=== PATIENT | male | born 1955 | race Caucasian/White ===

== ENCOUNTER 2024-01-10 15:30 | Emergency (ER) | payer MEDICARE, OTHER, SELFPAY ==
[2024-01-10 15:37] VITALS: BP 157/78
[2024-01-10 15:58] LABS: % Basophils 0.7 % (0-2); % Immature Granulocytes 0.9 % (0-0.5); % Monocytes 7.9 % (1.7-9.3); % Neutrophils 73.5 % (42.2-75.2); Absolute Basophils 0.1 10^3/uL (0-0.2); Absolute Eosinophils 0.1 10^3/uL (0-0.7); Absolute Immature Granulocytes 0.1 10^3/uL (0-0.05); Absolute Lymphocytes 2.2 10^3/uL (1.2-3.4); Absolute Monocytes 1.1 10^3/uL (0.1-0.6); Absolute Neutrophils 10.1 10^3/uL (1.4-6.5); Hematocrit 42.4 % (39.0-52.0); Hemoglobin 14.4 g/dL (13.0-18.0); Mean Corpuscular Hgb 32.2 pg (27.0-31.0); Mean Corpuscular Volume 94.9 fL (80.0-94.0); Mean Platelet Volume 9.8 fL (7.4-10.4); Nucleated Red Blood Cells % 0 % (-); Platelet Count 241 10^3/uL (130-400); Red Blood Cell Count 4.47 10^6/uL (4.70-6.10); Red Cell Dist. Width 12.6 % (11.5-14.5); White Blood Cell Count 13.7 10^3/uL (4.8-10.8)
[2024-01-10 16:14] LABS: ALT (SGPT) 30 U/L (0-50); AST (SGOT) 29 U/L (17-59); Alkaline Phosphatase 96 U/L (38-126); Blood Urea Nitrogen 18 mg/dl (9-20); Calcium 9.5 mg/dl (8.4-10.2); Carbon Dioxide 29 mmol/L (22-30); Chloride 100 mmol/L (98-107); Glucose 101 mg/dl (70-99); Potassium 4.3 mmol/L (3.5-5.1); Sodium 137 mmol/L (135-145); Total Bilirubin 0.8 mg/dl (0.2-1.3); Total Protein 6.7 g/dl (6.3-8.2); eGFR > 60.00
[2024-01-10 17:39] LABS: Urine Albumin 2+ (Neg - Trace); Urine Bilirubin Negative (Negative); Urine Character Very Cloudy (Clear); Urine Color Brown; Urine Glucose Negative (Negative); Urine Ketone Trace (Negative); Urine Leukocyte 2+ (Negative); Urine Nitrite Positive (Negative); Urine Occult Blood 4+ (Negative); Urine Specific Gravity 1.015 (<1.030); Urine Urobilinogen Negative (Neg - 1+)
[2024-01-10 17:46] LABS: Urine Red Blood Cell >100 /HPF (0-2)
--- NOTE | 2024-01-10 18:36 | ED.GENMED ---
Addendum entered and electronically signed by Stevo James PA-C 01/13/24 13:54:
Patient's urine culture grew greater than 100,000 CFU of Klebsiella. Susceptible to second and third-generation cephalosporins. Prescription for cefuroxime sent to patient's pharmacy. Patient has appointment scheduled with urology for the end of
the month. Unable to see his family provider in a timely matter either. Patient still notes he is having hematuria and some frequency. Will send a prescription for cefuroxime to patient's pharmacy. Aware of return precautions.
Original Note:
History of Present Illness
General
Chief Complaint: Urinary Symptoms
Source: patient
Exam Limitations: none
Time Seen by Provider: 01/10/24 18:35
Nursing documentation reviewed up to this point in time: agreed with
Travel History
Have you had any contact with someone who has COVID-19?: No
Do you have any symptoms of coronavirus? Fever > 100 degrees, chills, cough, shortness of breath, sore throat, loss of taste or smell, muscle aches, or headache?: No
History of Present Illness
History of Present Illness:
68-year-old male with history of A-fib on Xarelto, CAD, HTN, cardiac stents presents stating at 12 noon today urinated bloody urine with a few tiny clots, he is urinated a few times since, still bloody, denies pain, denies fever or chills, denies
abdominal pain.
Past History
Past History
ED Past Medical History: Arrthythmia (PAF), Asthma, CAD and HTN
ED Past Surgical History: Cardiac (Stents, cardiac ablation) and Orthopedic
Social History
Tobacco: Non-smoker
Alcohol: None
Personal:
Living: with family
Family History
Family History: Negative Diabetes, Hypertension or CAD
Review of Systems
Review of Systems
Allergies reviewed?: Yes
All Other Systems: ROS reviewed and negative except as documented in HPI and ROS
Constitutional: Denies fever, fatigue or chills
ABD/GI: Denies abdominal pain, nausea, vomiting or anorexia
: Reports bleeding; Denies dysuria, frequency, flank pain, difficulty voiding or urgency
Musculoskeletal: Reports no symptoms
Skin: Reports no symptoms
Neurological: Reports no symptoms
Phy Exam
Physical Exam
Physical Exam:
GENERAL: No acute distress. A&Ox3.
CONSTITUTIONAL: Afebrile.
EYES: Clear, conjunctivae normal
ENMT: moist mucus membranes, Pharynx nl
RESPIRATORY: Regular respirations, nonlabored, lungs clear.
CARDIOVASCULAR: Regular rate and rhythm, no murmurs, no rubs.
GI: Soft, nontender, normal BS
: Patient just urinated into the toilet, the water is light pink, no clots
MUSCULOSKELETAL: Moves with ease. Well perfused.
SKIN: Warm, dry, pink
PSYCH: Normal mood and affect. Well kept, interactive and appropriate
NEUROLOGIC: Awake, alert and oriented. No focal neurological deficits
Course
Orders/Labs/Results
Orders:
Orders
01/10/24 15:48
CMP [Comprehensive Metabolic Panel] Urgent
Complete Blood Count/With Diff Urgent
01/10/24 17:09
Urinalysis Reflex To Culture Urgent
Date Specimen was Collected: 01/10/24
Time Specimen was Collected: 15:41
Urine Microscopic Reflex Cult Urgent
Urine Culture Urgent
MISAEL Source: U
Specimen Description:
Date Specimen was Collected: 01/10/24
Time Specimen was Collected: 15:41
01/10/24 19:01
Bladder Scan- Treatment ONCE
01/10/24 19:35
Fosfomycin [Monurol] 3 gm PO ONCE ONE
Abnormal Lab Results
01/10/24 01/10/24
15:48 17:09
WBC 13.7 H 10^3/uL
(4.8-10.8)
RBC 4.47 L 10^6/uL
(4.70-6.10)
MCV 94.9 H fL
(80.0-94.0)
MCH 32.2 H pg
(27.0-31.0)
Abs Immat Gran (auto) 0.1 H 10^3/uL
(0-0.05)
Absolute Neuts (auto) 10.1 H 10^3/uL
(1.4-6.5)
Absolute Monos (auto) 1.1 H 10^3/uL
(0.1-0.6)
Immature Gran % 0.9 H %
(0-0.5)
Lymphocytes % 16.0 L %
(20.5-51.1)
Glucose 101 H mg/dl
(70-99)
Urine Ketones Trace A
(Negative)
Ur Occult Blood Reflex 4+ A
(Negative)
Urine Nitrite (Reflex) Positive A
(Negative)
Leukocyte Esterase Rfl 2+ A
(Negative)
Urine RBC >100 A /HPF
(0-2)
Urine Albumin (Reflex) 2+ A
(Neg - Trace)
01/10/24 15:48
01/10/24 15:48
Vital Signs
Initial and Last Documented VS:
Initial Vital Signs
Temp Pulse Resp BP Pulse Ox
98.2 F 77 18 157/78 95
01/10/24 15:37 01/10/24 15:37 01/10/24 15:37 01/10/24 15:37 01/10/24 15:37
Last Documented Vital Signs
Temp Pulse Resp BP Pulse Ox
98.2 F 82 16 132/81 98
01/10/24 15:37 01/10/24 20:30 01/10/24 20:30 01/10/24 20:30 01/10/24 20:30
Health Actuary consulted with Physician
Health Actuary consulted with physician?: Yes
Name of Physician Consulted: Jerrell
MDM/Problems Addressed
Differential Diagnosis Includes:
UTI, supratherapeutic Xarelto
MDM/Problems Addressed:
68-year-old male with history of A-fib on Xarelto, CAD, HTN, cardiac stents presents stating at 12 noon today urinated bloody urine with a few tiny clots, he is urinated a few times since, still bloody, denies pain, denies fever or chills, denies
abdominal pain.
01/10/2024 1920 PM
CBC: WBC 13.7, no other abnormality
CMP: Normal
UA: 4+ occult blood, greater than 100 R positive nitrites BCs,, 2+ leukocytes , Unable to count WBC due to field obscured by RBCs.
Postvoid bladder scan: 40 ml
Plan: Treat UTI with fosfomycin 3 g, Informed Urology Dr. Pisano pt will be calling in a.m. for appointment
holding Xarelto, Dr. Alvarado Cardiology notified and will f/u for Xarelto
Dr pope in to evaluate pt and agrees with assessment and plan.
68-year-old male with hematuria, positive leukocytes, positive nitrates in urine, afebrile, no pain, not ill-appearing, do not suspect upper urinary tract involvement/infection/pyelonephritis
Urine culture pending
*Critical Care Note
Total Time (30-74mins, 75-104mins- exclusive of procedures): Not Applicable
ED Attending Note
-
Portions of this chart may have been created with voice recognition software.� Occasional wrong word or��sound alike� substitutions may have occurred due to the inherent limitations of voice recognition software.
Discharge Plan
Departure
Patient Disposition: Home (Routine Discharge)
Date of Disposition: 01/10/24
Time of Disposition: 19:49
Patient with high blood pressure during this ER visit?: No
Condition: Good
Discharge Problem:
Hematuria, Acute UTI
Instructions: Urinary Tract Infection, Adult (DC), Blood in the Urine (Hematuria), Adult (DC)
Prescriptions:
No Action
aspirin 81 MG tablet,delayed release (DR/EC)
81 mg PO DAILY 0RF
ezetimibe 10 MG tablet
10 mg PO QPM
cholecalciferol (vitamin D3) 2,000 UNITS tablet
2,000 unit PO DAILY
Xarelto 20 MG tablet
20 mg PO QPM Qty: 30 6RF
atorvastatin 10 MG tablet
20 mg PO BID
doxazosin 1 mg Tablet
1 mg PO QPM
metoprolol succinate 50 mg Tablet Extended Release 24 Hr
50 mg PO 1700
metoprolol succinate 100 mg Tablet Extended Release 24 Hr
100 mg PO DAILY
lisinopril 2.5 mg Tablet
2.5 mg PO QPM
mecobalamin (vitamin B12) [B12 Active] 1,000 mcg Tablet,Chewable
1,000 mcg PO DAILY
tizanidine 4 mg Tablet
4 mg PO DAILYPRN PRN (Reason: muscle spasms)
oxycodone [OxyContin] 15 mg Tablet,Oral Only,Ext.Rel.12 Hr
15 mg PO Q12H
meloxicam 7.5 mg Tablet
7.5 mg PO DAILY
pantoprazole [Protonix] 40 mg tablet,delayed release (DR/EC)
40 mg PO DAILY Qty: 30 0RF
Referrals:
Naty Trotter DO [Family Provider] -
Bakari Pisano MD [Active] - Next open appointment
Leland Garner MD [Active] - Tomorrow
Activity Restrictions/Additional Instructions:
As we discussed, call the urology Dr. Pisano's office tomorrow and make an appointment for follow-up.
Someone from Dr. Garner's office should contact you tomorrow regarding restarting your Xarelto. If you do not hear from them by noon, give the office a call
Return here immediately for fever, chills, vomiting, inability to empty your bladder or feeling sicker in any way
Interventions
Interventions:
*Risk Screen - Suicide Last Done: 01/10/24 18:58
*General Assessment Last Done: 01/10/24 18:58
*Neglect/Abuse Screening Last Done: 01/10/24 18:58
ED- Fall Risk Assessment Last Done: 01/10/24 18:58
*ED COVID-19 Vaccine History Last Done: 01/10/24 18:58
*Nursing Disposition Last Done: 01/10/24 20:30
ED-Male Genitourinary Assessment Last Done: 01/10/24 18:58
Discharge Date and Time
Discharge Date/Time: 01/10/24 20:30
--- NOTE | 2024-01-10 19:03 | EDRN ---
back pain from a fusion.
[2024-01-10 19:05] VITALS: BMI 30.1
[2024-01-10] MEDS: MONUROL 3 GM PO (19:55)
[2024-01-10 20:30] VITALS: BP 132/81
[2024-01-10 21:12] VITALS: BP 132/81
== END 2024-01-10 20:30 | disposition home or self-care (01) ==
LOC: EMR 15:30
PROVIDERS: EMERGENCY PHYSICIAN Emergency Medicine; FAMILY PHYSICIAN Student in an Organized Health Care Education/Training Program
DX: N39.0 Urinary tract infection, site not specified (principal); R31.9 Hematuria, unspecified; I48.0 Paroxysmal atrial fibrillation; I25.10 Atherosclerotic heart disease of native coronary artery without angina pectoris; I10 Essential (primary) hypertension; Z95.5 Presence of coronary angioplasty implant and graft
CPT/HCPCS: 99283; 80053; 81003; 81015; 85025; 87077; 87086; 87186

== ENCOUNTER → 2024-01-21 07:42 | Outpatient (REF) | payer MEDICARE, OTHER, SELFPAY | LOC: HWRAD 07:42 | PROVIDERS: ATTENDING PHYSICIAN Specialist; FAMILY PHYSICIAN Student in an Organized Health Care Education/Training Program | DX: R31.0 Gross hematuria (principal); N39.0 Urinary tract infection, site not specified | CPT/HCPCS: 76770 ==

== ENCOUNTER 2024-05-12 09:58 | Inpatient (IN) | payer MEDICARE, OTHER, SELFPAY ==
[2024-05-12 10:17] VITALS: BP 134/69
--- NOTE | 2024-05-12 10:24 | W.PN.CARDCBS ---
Addendum entered and electronically signed by Leland Garner MD 05/12/24 13:31:
68-year-old man with CAD/PCI, history of atrial tachycardia status post ablation and PAF November 2023 with recurrent atrial arrhythmia, admitted now for sotalol loading
PMH/PSH/FH/SH: Reviewed
Allergies: None
Outpatient meds reviewed, cardiac meds doxazosin 1 mg at bedtime, atorvastatin 20 mg a day, lisinopril 2.5 mg daily ezetimibe 10 mg daily, metoprolol ER 50 mg in the afternoon and 100 mg in the morning and Xarelto
ROS: Negative except as above
134/69, pulse 57, respiratory 20, head neck exam unremarkable lungs clear, regular rate and rhythm with soft systolic murmur, JVD carotids okay, abdomen benign extremities without clubbing cyanosis or edema distal pulses intact
EKG: Sinus bradycardia, PVCs, incomplete right bundle branch block, QTc 379
Hemoglobin 12.7, platelets 164, BUN and creatinine 18 and 1 with potassium of 5
Assessment:
Direct admission for sotalol loading
Frequent paroxysmal atrial tachycardia by monitor 01/2024
Paroxysmal atrial fibrillation
s/p PVI 12/01/23
PVCs
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
HTN
HLD
DDD/OA
Asthma
ECHO 11/18/2023: EF 63%, mild concentric LVH, trace MR
Plan:
Sotalol loading
Stop metoprolol for now
Original Note:
Today's Communication / Plan
-
awaiting labs and EKG
initiate sotalol
follow QTc
Impression / Plan
-
Please refer to office note dated 04/27/24
Primary Sonographer: Dr. SENTHIL Garner
Assessment:
Direct admission for sotalol loading
Frequent paroxysmal atrial tachycardia by monitor 01/2024
Paroxysmal atrial fibrillation
s/p PVI 12/01/23
PVCs
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
HTN
HLD
DDD/OA
Asthma
ECHO 11/18/2023: EF 63%, mild concentric LVH, trace MR
Plan:
-Patient presents for sotalol loading. He has paroxysmal atrial fibrillation and underwent PVI 11/2023. He had been having episodes of angina with significant physical exertion in the setting of known FACULTY MEMBER of 2nd diag. He underwent monitoring
01/2024 which showed 4000 episodes of atrial tachycardia.
-awaiting labs
-will initiate sotalol, dose pending bloodwork
-follow QTc
-currently in SR on tele
-continue xarelto, no missed doses
-he is taking toprol 100mg QAM and 50mg QPM. will decrease dose with addition of sotalol as HR currently in 50s
-he c/o leg cramping at last office visit. He was told to stop Zetia and statin after completing CVE. He states he has not yet had this blood work. Will complete CVE in AM. Cramping does not appear to be statin related.
-d/w nursing
Progress Note - Sonographer
Subjective
Date of Service: May 12, 2024
no complaints.
Physical Exam
Physical Exam
GEN: No distress, awake, alert, oriented x3
HEENT: supple, anicteric, mmm, eomi
LUNGS: CTA B/L, no wheezes/rales
CV: Reg, S1/S2, no murmur
ABD: soft, BS+, NT/ND
EXT: No cyanosis, clubbing, edema
NEURO: Gross non-focal
SKIN: Warm, pink, dry. No rash
[2024-05-12 11:00] VITALS: BMI 30.3
[2024-05-12 11:10] LABS: % Basophils 0.6 % (0-2); % Eosinophils 1.6 % (0-6); % Immature Granulocytes 0.5 % (0-0.5); % Lymphocytes 26.4 % (20.5-51.1); % Monocytes 8.8 % (1.7-9.3); % Neutrophils 62.1 % (42.2-75.2); Absolute Basophils 0.1 10^3/uL (0-0.2); Absolute Eosinophils 0.1 10^3/uL (0-0.7); Absolute Lymphocytes 2.3 10^3/uL (1.2-3.4); Absolute Monocytes 0.8 10^3/uL (0.1-0.6); Absolute Neutrophils 5.4 10^3/uL (1.4-6.5); Hematocrit 39.4 % (39.0-52.0); Hemoglobin 12.7 g/dL (13.0-18.0); Mean Corp Hgb Conc. 32.2 g/dL (33.0-37.0); Mean Corpuscular Hgb 32.7 pg (27.0-31.0); Mean Corpuscular Volume 101.5 fL (80.0-94.0); Mean Platelet Volume 10.8 fL (7.4-10.4); Nucleated Red Blood Cells % 0 % (-); Platelet Count 164 10^3/uL (130-400); Red Blood Cell Count 3.88 10^6/uL (4.70-6.10); Red Cell Dist. Width 13.6 % (11.5-14.5); White Blood Cell Count 8.7 10^3/uL (4.8-10.8)
[2024-05-12 11:27] VITALS: BP 138/69
[2024-05-12 12:25] LABS: ALT (SGPT) 29 U/L (0-50); AST (SGOT) 28 U/L (17-59); Alkaline Phosphatase 81 U/L (38-126); Blood Urea Nitrogen 18 mg/dl (9-20); Calcium 9.1 mg/dl (8.4-10.2); Carbon Dioxide 29 mmol/L (22-30); Chloride 103 mmol/L (98-107); Estimated Creatinine Clearance 67 ml/min; Glucose 89 mg/dl (70-99); Magnesium 1.9 mg/dl (1.6-2.3); Sodium 137 mmol/L (135-145); Total Bilirubin 0.9 mg/dl (0.2-1.3); Total Protein 6.1 g/dl (6.3-8.2); eGFR > 60.00
--- NOTE | 2024-05-12 12:40 | CM ---
CM following for DC planning needs.
Met w/ patient + spouse at bedside to complete initial assessment.
Pt. informs that he resides in a private home w spouse. He is functionally indep. at baseline with ADLs, mobility without the use of any assisted device.
Pt. has Rx plan and goes to [facility] on [address]
Anticipated DC plan is for home, no needs.
CM will cont. to follow for any needs that may arise.
[2024-05-12] MEDS: BETAPACE 120 MG PO (13:02)
[2024-05-12 15:26] VITALS: BP 141/77
[2024-05-12] MEDS: OXYCONTIN (CONTROLLED RELEASE) 15 MG PO (15:30)
[2024-05-12 15:45] VITALS: BMI 30.3
[2024-05-12 18:32] VITALS: BP 125/81
[2024-05-12] MEDS: XARELTO 20 MG PO (18:33)
[2024-05-12] MEDS: ZETIA 10 MG PO (18:33)
[2024-05-12] MEDS: LIPITOR 20 MG PO (18:33)
[2024-05-12] MEDS: ZESTRIL 2.5 MG PO (18:33)
[2024-05-12 19:13] VITALS: BP 130/70
[2024-05-12 21:59] VITALS: BP 133/73
[2024-05-12] MEDS: CARDURA 1 MG PO (23:22)
[2024-05-12] MEDS: ZANAFLEX 4 MG PO (23:25)
[2024-05-13] MEDS: BETAPACE 120 MG PO ×3 (00:55→22:04)
--- NOTE | 2024-05-13 01:38 | PTCARENOTE ---
Patient in chair until about 0100. Tikosyn #2 dose given, EKG ordered for 0300. SB HR in the 40-50's, lights dimmed, now in bed, call strange in reach
[2024-05-13 02:59] VITALS: BP 120/66
[2024-05-13] MEDS: OXYCONTIN (CONTROLLED RELEASE) 15 MG PO ×2 (03:06→15:12)
[2024-05-13 03:23] LABS: Hematocrit 39.2 % (39.0-52.0); Hemoglobin 13.7 g/dL (13.0-18.0); Mean Corp Hgb Conc. 34.9 g/dL (33.0-37.0); Mean Corpuscular Hgb 33.4 pg (27.0-31.0); Mean Corpuscular Volume 95.6 fL (80.0-94.0); Mean Platelet Volume 10.6 fL (7.4-10.4); Platelet Count 182 10^3/uL (130-400); Red Cell Dist. Width 13.6 % (11.5-14.5); White Blood Cell Count 10.2 10^3/uL (4.8-10.8)
[2024-05-13 03:47] LABS: Blood Urea Nitrogen 18 mg/dl (9-20); Calcium 9.7 mg/dl (8.4-10.2); Carbon Dioxide 27 mmol/L (22-30); Chloride 106 mmol/L (98-107); Estimated Creatinine Clearance 75 ml/min; Glucose 79 mg/dl (70-99); HDL Cholesterol 54 mg/dl; LDL Cholesterol, Calculated 61 mg/dl; Potassium 4.6 mmol/L (3.5-5.1); Sodium 140 mmol/L (135-145); Total Cholesterol 126 mg/dl (50-199); Triglyceride 56 mg/dl (10-149); Very Low Density Lipoprotein 11 mg/dl (0-30); eGFR > 60.00
--- NOTE | 2024-05-13 07:12 | W.PN.CARDCBS ---
Addendum entered and electronically signed by Leland Garner MD 05/13/24 10:03:
Patient offers no complaints, to receive his third dose of sotalol this afternoon
PMH/PSH/SH/FH: Reviewed
Allergies: None
Outpatient meds: Reviewed
Current medicationsReviewed, sotalol is 120 mg twice daily
ROS: Reviewed
139/59, pulse 66, respiratory rate 20, afebrile, head neck exam unremarkable lungs are clear soft systolic murmur at base, abdomen benign extremities without clubbing cyanosis or edema distal pulses intact
Hemoglobin 13.7, BUN and creatinine 18 and 0.9, EKG sinus bradycardia, QTc is 424, RSR prime/incomplete right bundle branch block
Impression:
Direct admission for sotalol loading 05/12/24
Frequent paroxysmal atrial tachycardia by monitor 01/2024
Paroxysmal atrial fibrillation
s/p PVI 12/01/23Chronic Xarelto OAC
PVCs
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
HTN
HLD
DDD/OA
Asthma
ECHO 11/18/23: EF 63%, mild concentric LVH, trace MR
Plan:
Overall he appears stable, will continue sotalol and plan on discharge mid afternoon
May 14
Original Note:
Today's Communication / Plan
-
Cont sotalol 120 mg BID
D/C to home tomorrow if HR and QTc stable
Impression / Plan
-
PCP: Dr. Trotter
Primary Chute Builder: Dr. SENTHIL Garner
Impression:
Direct admission for sotalol loading 05/12/24
Frequent paroxysmal atrial tachycardia by monitor 01/2024
Paroxysmal atrial fibrillation
s/p PVI 12/01/23
Chronic Xarelto OAC
PVCs
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
HTN
HLD
DDD/OA
Asthma
ECHO 11/18/23: EF 63%, mild concentric LVH, trace MR
Plan:
-Patient received 2nd dose of sotalol late Wednesday night with ECG 2 hours later which was early Wednesday morning, QTc is stable at 424 ms as reviewed by me. Cont sotalol 120 mg BID loading with 3rd and 4th doses to be given Wednesday and then likely
d/c to home after 5th dose on Wednesday.
-Tele reviewed by me 05/13/24 and HRs in the upper 50s, but appropriately increase to 70 with activity. Outpatient dose of Toprol XL 100 mg AM and 50 mg afternoon daily was stopped on admission. If HRs dip lower then could consider a lower dose of
sotalol.
-BP stable following discontinuation of Toprol XL on admission.
-Outpatient dose of lisinopril 2.5 mg daily has been continued
-LDL 61 on outpatient doses of Zetia 10 mg daily and atorvastatin 20 mg daily. Patient complained of thigh cramping at last office visit 04/27/24 and was told to hold atorvastatin and Zetia for 2 weeks and then call back to report on symptoms, but he
never did this.
-D/C to home 05/14/24 pending QTc
HPI: Patient presents for sotalol loading. He has paroxysmal atrial fibrillation and underwent PVI 11/2023. He had been having episodes of angina with significant physical exertion in the setting of known MANGLE OPERATOR GARMENTS of 2nd diag. He underwent monitoring
01/2024 which showed 4000 episodes of atrial tachycardia.
Progress Note - Chute Builder
Subjective
Date of Service: May 13, 2024
He feels well, no palpitations
Objective
Labs:
05/13/24 03:14
05/13/24 03:14
Labs
Hgb 13.7 g/dL (13.0-18.0) 05/13/24 03:14
Hct 39.2 % (39.0-52.0) 05/13/24 03:14
Plt Count 182 10^3/uL (130-400) 05/13/24 03:14
Sodium 140 mmol/L (135-145) 05/13/24 03:14
Potassium 4.6 mmol/L (3.5-5.1) 05/13/24 03:14
BUN 18 mg/dl (9-20) 05/13/24 03:14
Creatinine 0.9 mg/dL (0.7-1.3) 05/13/24 03:14
Glucose 79 mg/dl (70-99) 05/13/24 03:14
Vital Signs and I&O:
Vital Signs
Temp Pulse Resp BP Pulse Ox
97.9 F 61 16 120/66 98
05/13/24 03:05 05/13/24 03:00 05/13/24 03:05 05/13/24 02:59 05/13/24 03:05
Vital Signs
Temp Pulse Resp BP Pulse Ox
97.9 F 61 16 120/66 98
05/13/24 03:05 05/13/24 03:00 05/13/24 03:05 05/13/24 02:59 05/13/24 03:05
Intake & Output
05/11/24 05/12/24 05/13/24 05/14/24
06:59 06:59 06:59 06:59
Intake Total 480 / 480
Balance 480 / 480
Physical Exam
Physical Exam
GEN: NAD. AAOx3
HEENT: EOMI, MMM
LUNGS: No audible wheeze
CV: SR on tele
ABD: ND
EXT: No edema B/L
NEURO: Gross non-focal
SKIN: No rash
[2024-05-13 07:26] VITALS: BP 139/59
[2024-05-13] MEDS: VITAMIN B-12 1000 MCG PO (07:57)
[2024-05-13] MEDS: VITAMIN D3 (cholecalciferol) 50 MCG PO (07:57)
[2024-05-13 09:04] VITALS: BMI 29.4
[2024-05-13 13:36] VITALS: BP 121/66
[2024-05-13 15:52] VITALS: BP 138/76
--- NOTE | 2024-05-13 17:45 | PTCARENOTE ---
assessment stable as documented, VSS, QTc WNL, Pt without complaints throughout day.
[2024-05-13] MEDS: ZETIA 10 MG PO (18:07)
[2024-05-13] MEDS: XARELTO 20 MG PO (18:07)
[2024-05-13] MEDS: LIPITOR 20 MG PO (18:07)
[2024-05-13] MEDS: ZESTRIL 2.5 MG PO (18:07)
[2024-05-13 19:12] VITALS: BP 112/65
[2024-05-13] MEDS: ZANAFLEX 4 MG PO (21:03)
[2024-05-13 22:04] VITALS: BP 124/68
[2024-05-13] MEDS: CARDURA 1 MG PO (22:04)
[2024-05-14] MEDS: OXYCONTIN (CONTROLLED RELEASE) 15 MG PO (03:37)
[2024-05-14 03:38] VITALS: BP 127/70
--- NOTE | 2024-05-14 03:40 | PTCARENOTE ---
Pt without complaints this shift. ambulating as a self. POC discussed- pt verbalized understanding. 4th dose Qtc 453. HR ranging from 40s- 60s. SB/SR on the monitor.
[2024-05-14 07:44] VITALS: BP 110/63
[2024-05-14] MEDS: VITAMIN B-12 1000 MCG PO (07:45)
[2024-05-14] MEDS: VITAMIN D3 (cholecalciferol) 50 MCG PO (07:45)
[2024-05-14] MEDS: BETAPACE 120 MG PO (07:45)
--- NOTE | 2024-05-14 07:50 | PTCARENOTE ---
Received pt from designer/writer RN, pt AAOx3 and ambulating in hallway; Sinus Sabino with PACs on monitor and VSS; Lungs clear; positive bowel sounds and pt voiding clear yellow urine; palpable pulses throughout; no edema noted; see nursing
documentation for further details.
--- NOTE | 2024-05-14 12:06 | W.PN.CARDCBS ---
Today's Communication / Plan
-
Okay for discharge, will make sotalol 80 mg twice daily
Impression / Plan
-
PCP: Dr. Trotter
Primary Plow And Boring Machine Tender: Dr. SENTHIL Garner
Impression:
Direct admission for sotalol loading 05/12/24
Frequent paroxysmal atrial tachycardia by monitor 01/2024
Paroxysmal atrial fibrillation
s/p PVI 12/01/23
Chronic Xarelto OAC
PVCs
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
HTN
HLD
DDD/OA
Asthma
ECHO 11/18/23: EF 63%, mild concentric LVH, trace MR
Plan:
Overall doing well
Okay for discharge. He is relatively bradycardic, will make sotalol 80 mg twice daily given bradycardia. QTc is normal.
HPI: Patient presents for sotalol loading. He has paroxysmal atrial fibrillation and underwent PVI 11/2023. He had been having episodes of angina with significant physical exertion in the setting of known MECHANICAL ORDNANCE ASSEMBLER of 2nd diag. He underwent monitoring
01/2024 which showed 4000 episodes of atrial tachycardia.
Progress Note - Plow And Boring Machine Tender
Subjective
Date of Service: May 14, 2024:
PMH/PSH/SH/FH: Reviewed
Allergies none
Outpatient medications: Reviewed
Current medications: Reviewed
ROS: Negative except as above
110/63, pulse 51, respirate 20, afebrile, head neck cam exam unremarkable, lungs are clear, regular rate and rhythm, soft systolic murmur, abdomen benign, extremities without clubbing cyanosis or edema, neuro nonfocal
no labs,EKG today, sinus bradycardia, rate 48, PACs, QTc okay
Objective
Labs:
05/13/24 03:14
05/13/24 03:14
Labs
Hgb 13.7 g/dL (13.0-18.0) 05/13/24 03:14
Hct 39.2 % (39.0-52.0) 05/13/24 03:14
Plt Count 182 10^3/uL (130-400) 05/13/24 03:14
Sodium 140 mmol/L (135-145) 05/13/24 03:14
Potassium 4.6 mmol/L (3.5-5.1) 05/13/24 03:14
BUN 18 mg/dl (9-20) 05/13/24 03:14
Creatinine 0.9 mg/dL (0.7-1.3) 05/13/24 03:14
Glucose 79 mg/dl (70-99) 05/13/24 03:14
Vital Signs and I&O:
Vital Signs
Temp Pulse Resp BP Pulse Ox
37.2 C 51 20 110/63 98
05/14/24 11:18 05/14/24 09:00 05/14/24 11:18 05/14/24 07:45 05/14/24 11:18
Vital Signs
Temp Pulse Resp BP Pulse Ox
37.2 C 51 20 110/63 98
05/14/24 11:18 05/14/24 09:00 05/14/24 11:18 05/14/24 07:45 05/14/24 11:18
Intake & Output
05/12/24 05/13/24 05/14/24 05/15/24
07:59 07:59 07:59 07:59
Intake Total 480 / 480 500 / 500
Balance 480 / 480 500 / 500
Physical Exam
Physical Exam
See above
--- NOTE | 2024-05-14 12:16 | W.DS.TRANS ---
DC Summary - Manufacturing Technology Professor
-
Discharge Instructions:
Sleep Apnea Risk Intermediate
Discharge Diagnosis/Procedures sotalol load, atrial tachycardia
Diet Low Cholesterol
Activity As tolerated
Driving Restrictions As prior to admission
Bathing Restrictions None
Instructions:
Stand-Alone Forms:
Changes to Home Medications: Yes
Discharge Medications:
DC Medications w/original date entered in [employer]
cholecalciferol (vitamin D3) 50 mcg (2,000 unit) tablet 2,000 unit PO DAILY Supplement 02/02/18
ezetimibe 10 mg tablet 10 mg PO QPM High Cholesterol 02/02/18
rivaroxaban 20 mg tablet (Xarelto) 20 mg PO QPM ##30 02/02/18
atorvastatin 10 mg tablet 20 mg PO Q6PM High Cholesterol 06/05/21
doxazosin 1 mg tablet 1 mg PO QPM Mental Health/Anxiety 11/10/23
lisinopril 2.5 mg tablet 2.5 mg PO QPM Blood Pressure 11/10/23
mecobalamin (vitamin B12) 1,000 mcg chewable tablet (B12 Active) 1,000 mcg PO DAILY Supplement 11/10/23
oxycodone 15 mg tablet,crush resistant,extended release 12 hr (OxyContin) 15 mg PO Q12H Pain 11/12/23
tizanidine 4 mg tablet 4 mg PO DAILYPRN PRN muscle spasms 11/12/23
meloxicam 7.5 mg tablet 7.5 mg PO DAILY INFLAMMATION 12/01/23
sotalol 80 mg tablet 80 mg PO BID #180 tabs 05/14/24
Home Medication Changes
Pending Results: No
--- NOTE | 2024-05-14 14:00 | PTCARENOTE ---
electronic device monitor removed and IV removed; medication and discharge instructions reviewed with pt and significant other.
== END 2024-05-14 14:14 | disposition home or self-care (01) | DRG 310 ==
LOC: IVU 09:58
PROVIDERS: Physician Assistant; ADMITTING PHYSICIAN Internal Medicine Cardiovascular Disease; FAMILY PHYSICIAN Student in an Organized Health Care Education/Training Program
PROC: 3E0DXRZ Introduction of Antiarrhythmic into Mouth and Pharynx, External Approach (ICD-10-PCS; 2024-05-12)
DX: I47.19 Other supraventricular tachycardia (principal); I48.0 Paroxysmal atrial fibrillation; I25.10 Atherosclerotic heart disease of native coronary artery without angina pectoris; J45.909 Unspecified asthma, uncomplicated; M19.90 Unspecified osteoarthritis, unspecified site; E78.5 Hyperlipidemia, unspecified; I10 Essential (primary) hypertension; Z79.01 Long term (current) use of anticoagulants; Z98.61 Coronary angioplasty status
CPT/HCPCS: 80048; 80053; 80061; 83735; 85025; 85027; 93005